=== PATIENT | male | born 1965 | race Caucasian/White ===

== ENCOUNTER 2021-09-30 16:36 | Emergency (ER) | payer OTHER ==
[~2021-09-30] VITALS: Ht 182.9 cm; Wt 113.8 kg
[2021-09-30] MEDS ORDERED: HYDROcodone/APAP 10/325 1 TAB TABLET PO ONE (17:15)
[2021-09-30] MEDS ORDERED: TAMSULOSIN 0.4 MG CAP.ER.24H. PO ONE (17:15)
[2021-09-30] MEDS ORDERED: ONDANSETRON ODT 4 MG TAB.RAPDIS PO ONE ×2 (17:15→20:15)
[2021-09-30 18:04] LABS: CLARITY,URINE CLOUDY; COLOR,URINE YELLOW; GLUCOSE,URINE NEG (NEG); NITRITE,URINE NEG (NEG); RBC,URINE >40 /HPF (0-2); UROBILINOGEN,URINE 0.2 mg/dL (0.2 mg/dL)
[2021-09-30 18:05] LABS: BACTERIA,URINE FEW /HPF (0-FEW); SQUAMOUS EPITHELIAL CELL,UR FEW /LPF
--- NOTE | 2021-09-30 18:25 | PHYS DOC ---
Past History Additional Past Medical Histor: LOWER BACK (PADMINI MALDONADO DO) Past Medical History: Kidney Stones (GALINA MOHAN MD) Past Surgical History: No Surgical History (PADMINI MALDONADO DO) Alcohol Use: Rarely (PADMINI MALDONADO DO) General Adult EDM: Chief Complaint: FLANK PAIN HPI: HPI: 56 yo M PMH left inguinal hernia, kidney stones, BPH and hyperlipidemia, presents to the ED with complaints of left flank pain that started on Tuesday and has been intermittent. Now reports mild left groin pain and dark urine. History of kidney stones 1 year ago. States " I overdid it," and took 8 tablets of his baclofen 10 mg last night due to the pain. Also complains of "tickling with urination." Takes flomax and meloxicam daily. (PADMINI MALDONADO DO) Review of Systems: Review of Systems: Constitutional: Denies fever or chills Eyes: Denies change in visual acuity HENT: Denies nasal congestion or sore throat Respiratory: Denies cough or shortness of breath Cardiovascular: Denies chest pain or edema GI: Denies bloody stools or diarrhea : Denies dysuria or hematuria Musculoskeletal: Denies midline back pain or joint pain Integument: Denies rash or diaphoresis Neurologic: Denies headache, focal weakness or sensory changes Endocrine: Denies polyuria or polydipsia Lymphatic: Denies swollen glands Psychiatric: Denies depression or anxiety (PADMINI MALDONADO DO) Current Medications: Current Meds: Current Medications Medications (Trade) Dose Ordered Sig/Oracio Start Time Stop Time Status Last Admin Dose Admin Acetaminophen/ Hydrocodone Bitart (Lortab 10/325) 1 tab 1X ONCE 09/30/21 17:15 09/30/21 17:20 DC Ondansetron HCl (Zofran Odt) 4 mg 1X ONCE 09/30/21 17:15 09/30/21 17:20 DC 09/30/21 17:52 4 MG Tamsulosin HCl (Flomax) 0.4 mg 1X ONCE 09/30/21 17:15 09/30/21 17:20 DC 09/30/21 17:52 0.4 MG (PADMINI MALDONADO DO) Allergies: Allergies: Allergies Coded Allergies Type Severity Reaction Last Updated Verified No Known Drug Allergies 09/30/21 No (PADMINI MALDONADO DO) Physical Exam: PE: Constitutional: Well developed, well nourished, no acute distress, non-toxic appearance, ambulatory and active in ed room-reports pain is "manageable, a 2" HENT: Normocephalic, atraumatic, Eyes: EOMI, conjunctiva normal, no discharge. Neck: Normal range of motion, supple, Cardiovascular: S1/2 present, regular rhythm Lungs & Thorax: Speaking in full sentences, bilateral equal chest rise, no tachypnea or increased work of breathing Abdomen: soft, no tenderness, Skin: Warm, dry, no erythema, no rash. [] Back: No midline tenderness, no reproducible CVA tenderness, Extremities: No tenderness, no cyanosis, no lower extremity edema Neurologic: Alert and oriented X 3, normal motor function, normal sensory function, no focal deficits noted. [] Psychologic: Affect normal, judgement normal, mood normal. [] [facility] Current Patient Data: Labs: Laboratory Tests Test 09/30/21 17:05 Urine Collection Type Unknown Urine Color Yellow Urine Clarity Cloudy Urine pH 5.5 Urine Specific [place] >=1.030 Urine Protein 100 mg/dl (NEG-TRACE) Urine Glucose (UA) Neg mg/dL (NEG) Urine Ketones (Stick) 15 mg/dL (NEG) Urine Blood Large (NEG) Urine Nitrite Neg (NEG) Urine Bilirubin Small (NEG) Urine Urobilinogen Dipstick 0.2 mg/dL (0.2 mg/dL) Urine Leukocyte Esterase Neg (NEG) Urine RBC >40 /HPF (0-2) Urine WBC 11-20 /HPF (0-4) Urine Squamous Epithelial Cells Few /LPF Urine Bacteria Few /HPF (0-FEW) Urine Mucus Mod /LPF Vital Signs: Vital Signs Date Time Temp Pulse Resp B/P (MAP) Pulse Ox O2 Delivery O2 Flow Rate FiO2 09/30/21 17:00 98.6 90 20 188/105 (132) 98 Room Air [facility] EKG: EKG: [] [facility] Radiology/Procedures: Radiology/Procedures: [] ([facility] Radiology/Procedures: IMAGING REPORT Signed PATIENT: FILIBERTO CROFT ACCOUNT: [id number] : 1965 LOCATION: ER AGE: 56 SEX: M EXAM STATUS: REG ER ORD. PHYSICIAN: PADMINI MALDONADO DO REASON: left flank pain PROCEDURE: CT ABDOMEN PELVIS WO CONTRAST Abdominal and Pelvis CT, Without Contrast: History: Reason: left flank pain / Spl. Instructions: / History: Comparison: None. Procedure: Axial images are obtained of the abdomen and pelvis, without IV or oral contrast. Oral Contrast: No Findings: Evaluation of solid organs is limited without contrast. Liver: Normal. Spleen: Normal. Pancreas: Normal. Adrenal Glands: Normal. Kidneys: There is moderate left hydronephrosis and left hydroureter secondary to a 4 mm stone in the distal left ureter just above the UVJ. The prostate is mildly enlarged. There are small fat-containing inguinal canal hernias. The appendix is normal. The gallbladder appears normal. There is no free air or free fluid. There is no lymphadenopathy. The urinary bladder appears normal. There is no pericolonic inflammation identified. Impression: Moderate left-sided hydronephrosis and hydroureter secondary to a 4 mm stone in the distal left ureter. End impression PQRS Compliance Statement: One or more of the following individualized dose reduction techniques were utilized for this examination: 1. Automated exposure control 2. Adjustment of the mA and/or kV according to patient size 3. Use of iterative reconstruction technique Electronically signed by: Sania Randolph III, MD (09/30/2021 7:51 PM) [facility] DICTATED AND SIGNED BY: SANIA RANDOLPH III, MD DATE: 09/30/211946 CC: PCP,NO; PADMINI MALDONADO DO ~ (GALINA MOHAN MD) Heart Score: C/O Chest Pain: No Risk Factors: Risk Factors: DM, Current or recent (<one month) smoker, HTN, HLP, family history of CAD, obesity. Risk Scores: Score 0 - 3: 2.5% MACE over next 6 weeks - Discharge Home Score 4 - 6: 20.3% MACE over next 6 weeks - Admit for Clinical Observation Score 7 - 10: 72.7% MACE over next 6 weeks - Early Invasive Strategies (PADMINI MALDONADO DO) Course & Med Decision Making: Course & Med Decision Making Pertinent Labs and Imaging studies reviewed. (See chart for details) Concern for left flank pain in the setting of uncontrolled, asymptomatic hypert ension. Patient denies any urinary complaints, fever, nausea or vomiting. CT imaging pending. Due to shift change patient was signed out to oncoming physician Dr. Mohan for further medical management disposition. (PADMINI MALDONADO DO) Course & Med Decision Making See Dr. Maldonado chart for details prior shift change. Pt. feeling better, requesting discharge. Reviewed CT with patient. Patient take Flomax daily while passing stone. Patient push fluids. Patient to follow- up with with Dr. Cameron patient states stone if passed. Patient do a short course of Cipro 500 twice a day.x7 days. Return if any concerns. Take Zofran 8 mg at 4 times a day if active vomiting. Impression: 1. Renal colic- Lt distal 4mm Ureter Stone 2. Hypertensions- Pt. follow up with primary 3. Nausea (GALINA MOHAN MD) Dragon Disclaimer: Dragon Disclaimer: This electronic medical record was generated, in whole or in part, using a voice recognition dictation system. (PADMINI MALDONADO DO) Departure Departure: Impression: Primary Impression: Left flank pain Additional Impression: Uncontrolled hypertension Disposition: 01 HOME / SELF CARE / HOMELESS Condition: STABLE Referrals: PCP,NO (PCP) [phone]-Dr. Antunez [phone] Patient Instructions: Flank Pain Additional Instructions: FOLLOW WITH UROLOGY: [facility] [address] [place] [address] OR [facility] [address] [address] EMERGENCY DEPARTMENT GENERAL DISCHARGE INSTRUCTIONS Thank you for coming to [facility] (ED) today and trusting us with you care. We trust that you had a positivie experience in our Emergency Department. If you wish to speak to the department management, you may call the director at [phone]. YOUR FOLLOW UP INSTRUCTIONS ARE FOLLOWS: 1. Do you have a private Doctor? If you do not have a private doctor, please ask for a resource list of physicians or clinics that may be able to assist you with follow up care. 2. The Emergency Physician has interpreted your x-rays. The X-Ray specialist will also review them. If there is a change in the findings, you will be notified in 48 hours when at all possible. 3. A lab test or culture has been done, your results will be reviewed and you will be notified if you need a change in treatment. ADDITIONAL INSTRUCTIONS AND INFORMATION: 1. Your care today has been supervised by a physician who is specially trained in emergency care. Many problems require more than one evaluation for a complete diagnosis and treatment. We recommend that you schedule your follow up appointment as recommended to ensure complete treatment of you illness or injury. If you are unable to obtain follow up care and continue to have a problem, or if your condition worsens, we recommend that you return to the ED. 2. We are not able to safely determine your condition over the phone nor are we able to give sound medical advice over the phone. For these safety reasons, if you call for medical advice we will ask you to come to the ED for further evaluation. 3. If you have any questions regarding these discharge instructions please call the ED at [phone]. SAFETY INFORMATION: In the interest of safety, wellness, and injury prevention; we encourage you to wear your sealbelt, if you smoke; quite smoking, and we encourage family to use a protective helmet for bicycling and other sporting events that present an increased risk for head injury. IF YOUR SYMPTOMS WORSEN OR NEW SYMPTOMS DEVELOP, OR YOU HAVE CONCERNS ABOUT YOUR CONDITION; OR IF YOUR CONDITION WORSENS WHILE YOU ARE WAITING FOR YOUR FOLLOW UP APPOINTMENT; EITHER CONTACT YOUR PRIMARY CARE DOCTOR, THE PHYSICIAN WHOSE NAME AND NUMBER YOU WERE GIVEN, OR RETURN TO THE ED IMMEDIATELY. Scripts Ciprofloxacin (CIPRO) 500 Mg/5 Ml Susy.mc.rec 500 MG PO BID for stone with wbc for 7 Days, MISC Prov: GALINA MOHAN MD 09/30/21 Tamsulosin Hcl (FLOMAX) 0.4 Mg Cap.er.24h 0.4 MG PO DAILY for renal stone, #30 CAP.SR Prov: GALINA MOHAN MD 09/30/21 Ondansetron (ONDANSETRON ODT) 4 Mg Tab.rapdis 4 MG PO Q6HRS for Nausea/Vomiting, #15 TAB Prov: PADMINI MALDONADO DO 09/30/21 Hydrocodone Bit/Acetaminophen (HYDROCODONE-APAP 5-325 ) 1 Each Tablet 1 TAB PO PRN Q6HRS PRN for PAIN for 4 Days, #16 TAB 0 Refills Prov: PADMINI MALDONADO DO 09/30/21 PADMINI MALDONADO DO Sep 30, 2021 18:25 GALINA MOHAN MD Sep 30, 2021 21:19
[2021-09-30] MEDS ORDERED: ONDA4TAB12 PO (18:40)
[2021-09-30] MEDS ORDERED: HYDR-2155 PO (18:40)
--- NOTE | 2021-09-30 19:53 | RAD ---
Abdominal and Pelvis CT, Without Contrast: History: Reason: left flank pain / Spl. Instructions: / History: Comparison: None. Procedure: Axial images are obtained of the abdomen and pelvis, without IV or oral contrast. Oral Contrast: No Findings: Evaluation of solid organs is limited without contrast. Liver: Normal. Spleen: Normal. Pancreas: Normal. Adrenal Glands: Normal. Kidneys: There is moderate left hydronephrosis and left hydroureter secondary to a 4 mm stone in the distal left ureter just above the UVJ. The prostate is mildly enlarged. There are small fat-containing inguinal canal hernias. The appendix is normal. The gallbladder appears normal. There is no free air or free fluid. There is no lymphadenopathy. The urinary bladder appears normal. There is no pericolonic inflammation identified. Impression: Moderate left-sided hydronephrosis and hydroureter secondary to a 4 mm stone in the distal left urete r. End impression PQRS Compliance Statement: One or more of the following individualized dose reduction techniques were utilized for this examinat ion: 1. Automated exposure control 2. Adjustment of the mA and/or kV according to patient size 3. Use of iterative reconstruction technique Electronically signed by: Reji Alvarado III, MD (09/30/2021 7:51 PM) [facility]
[2021-09-30] MEDS ORDERED: ONDANSETRON PF 4 MG/2 ML VIAL. IVP ONE (20:00)
[2021-09-30] MEDS ORDERED: KETOROLAC 30 MG/ML VIAL. IVP ONE (20:00)
[2021-09-30] MEDS ORDERED: KETOROLAC 60 MG/2 ML VIAL. IM ONE (20:15)
[2021-09-30] MEDS ORDERED: TAMS0.4C97 PO (21:22)
[2021-09-30 21:25] VITALS: BP 158/91
[2021-09-30] MEDS ORDERED: CIPR500S2 PO (21:25)
[2021-09-30] MEDS ORDERED: CIPROFLOXACIN HCL 500 MG TABLET PO ONE (21:30)
== END 2021-09-30 21:30 | disposition home or self-care (01) ==
LOC: ER 16:36
DX: N13.2 Hydronephrosis with renal and ureteral calculous obstruction (principal); I10 Essential (primary) hypertension; E78.5 Hyperlipidemia, unspecified; Z87.442 Personal history of urinary calculi
CPT/HCPCS: 74176; 81001; 87086; 96372; 99284; J1885; Q0162